=== PATIENT | female | born 1990 | race Caucasian/White ===

== ENCOUNTER 2021-11-24 16:19 | Emergency (ER) | payer OTHER ==
[2021-11-24] MEDS ORDERED: Ondansetron 4 MG/2 ML SDV IVPUSH ONE (16:58)
--- NOTE | 2021-11-24 16:59 | EDM.PDOC ---
<Aiden Branch - Last Filed: 11/25/21 06:30> ED HPI GENERAL MEDICAL PROBLEM - General Chief Complaint: General Stated Complaint: MEDICAL [facility]IA [facility] Time Seen by Provider: 11/24/21 16:54 - Related Data Allergies Allergy/AdvReac Type Severity Reaction Status Date / Time No Known Allergies Allergy Verified 11/24/21 17:16 Home Meds: Home Meds NK [No Known Home Meds] 11/24/21 [History] ED GENERAL MEDICAL PROCEDURES - Endotracheal Intubation Time of Intubation: 04:55 ET Intubation Indication: Respiratory Failure, Airway Protection, Cardiac Arrest Preparation: Suction, Balloon Tested, BVM Set Up, Difficult Airway Equip Pre-Oxygenation: Assisted with BVM, 100% FiO2 Placement: Orotracheal Cords Visualized: Yes ETT Size In mm: 8.0 Number of Attempts: 1 Confirmed By: CO2 Indicator, Bilateral Breath Sounds Tube Secured By: By Provider Endotracheal Intubation Comment: Tube is 24 cm at the teeth. Course - Re-Assessments/Exams Free Text/Narrative Re-Assessment/Exam: 11/25/21 01:22 the patient has had several rounds of fentanyl which does reduce her pain for a short period of time but is now becoming more agitated and having vomiting. Without question she has body aches related to the Covid, however, I am considering Haldol 5 mg IV push to treat her nausea, vomiting, agitation and body aches. She does remain tachycardic but otherwise stable. 11/25/21 02:33 the patient is becoming more tenuous with vitals despite having 1500 cc IV bolus of fluids and receiving Zofran for nausea. She was becoming more agitated, complaining of leg pain, and was vomiting so we gave her Haldol 5 mg IV push. It is becoming more difficult to assess her temperature and blood pressure. I discussed the case with Dr. Cruz, hospitalist/batch tester on- call who recommended an additional liter of IV normal saline. We will recheck her labs. We did broaden out her antibiotic coverage covering for more bacterial sources as possible cause of her sepsis with her elevated lactate. We will recheck a lactic acid at this time. If she continues to be tachycardic and hypotensive we will initiate norepinephrine IV. 11/25/21 03:02 repeat CBC shows the leukocyte count has gone from 18,000 to 27,000, her hemoglobin is gone from 20.7 to 24.6 and her platelet count has gone up to 344,000 despite receiving a bolus of IV fluids. Her urine showed a specific gravity of greater than 1.030. We will have to see what her repeat lactic acid looks like but it certainly looks like she may be third spacing her fluid and remains intravascularly depleted. 11/25/21 03:40 5 the Covid labs, D-dimer is markedly elevated at 1444, LDH is 781, C-reactive protein is gone from 1.10 to 1.36, pro calcitonin was 0.06 earlier and has not been read resulted yet aAnd lactic acid is gone from 4.2 to7.8 now despite being started on broad-spectrum antibiotics. The elevation of the lactic acid is worrisome especially in the presence of a markedly elevated D-dimer and worsening leg pain. We will do a CT of the chest abdomen and pelvis without contrast because her kidney function has significantly declined with creatinine going from 1.1 to 1.7 and her GFR dropping from 58 to 35. In addition we'll do bilateral lower extremity ultrasounds to rule out deep venous thrombosis as a possible cause for the elevation of her D-dimer and lactic acid. It still unclear where her source of sepsis is and I'm hoping the imaging will help identify a source. Does not appear to be the urine. 11/25/21 04:25 I reviewed the images of the CT of the chest, abdomen, and pelvis without contrast. The CT shows groundglass opacities in the lung at the mid field bilaterally. The patient has some motion artifact and was not holding her breath for the scan so there is hyper attenuation of the diaphragm from movement. The contents of the abdomen appear unremarkable. There is a markedly distended stomach with fluid but no evidence of obstruction. The majority of the small and large bowel appear to be decompressed raising the question of perhaps in a paralytic ileus. There does not appear to be any free fluid throughout the abdomen and the bladder appears to be decompressed. We will await for the final reading from [facility]. We are also awaiting the performance of the bilateral lower extremity venous duplex ultrasound. The patient is not following commands at this point so we will do an ABG to assess her oxygen exchange. She has breathing at around 50 times a minute at this point which is felt to be more likely due to anxiety, however, she also may be hypermetabolic. 11/25/21 04:45 I was called to the patient's room as a CODE BLUE was activated. The patient had fixed and dilated pupils and was unresponsive with mottling of her skin. She had no palpable pulse so CPR was initiated. She was apneic but had electrical activity on the monitor at a heart rate of 113 bpm. The patient was moved from room 6 to the stabilization room 10. She was prepped for intubation and a 8.0 endotracheal tube was placed using the glide scope across the vocal cords and secured in the airway. This was verified both by colorimetric and by auscultation. The tube was secured with a tube tamer and th e patient was placed on a Octavio device for continuous CPR. IV access was questionable so we did an intraosseous in the left tibia. This proved to be extremely difficult to flush so a IV was placed in the right forearm at the antecubital space. The patient received repeated rounds of epinephrine 1 mg aliquots, calcium carbonate 1 g IV, magnesium sulfate 1 g IV, lidocaine 100 mg IV x2 and bicarbonate 1 amp IV. Spontaneous electrical activity was noted to return to the patient, however, there was still no pulse and the Octavio device was continued. After discussion the thought was that this could be a large saddle pulmonary embolism and we elected to proceed with tissue plasma antigen. Octavio device was continued for the next 2 hours to circulate the tPA. For timing and details of administration of medications please looked at the scanned in code sheet. Dr. Cruz was consulted as well in the management of the patient and is currently in agreement with the plan. 2 hours of critical care time excluding procedures for review of the records, management of the patient and discussion with family. 11/25/21 06:50 I reviewed the latest ABG showing a pH of 6.5, PCO2 of 11.8, PO2 of 184, bicarbonate of 0.9 with a venous lactate of 21 and a creatinine of 1.83.. Her acid-base status is -32 mmol/L. Approximately 60% of the TPA had been infused at this time but the patient was not showing any sign of improvement. Given the extreme pH was felt that she was not recoverable at this time and all efforts were ceased. Patient was pronounced at 0650. I discussed the measures of care given towards the patient and had family come back to be with her. Departure - Departure Time of Disposition: 06:50 Disposition: 20 Clinical Impression: COVID-19, Tachypnea, Tachycardia, DIC (disseminated intravascular coagulation) Sepsis Qualifiers: Sepsis type: sepsis due to unspecified organism Sepsis acute organ dysfunction status: with acute organ dysfunction Severe sepsis acute organ dysfunction type: disseminated intravascular coagulopathy Severe sepsis shock status: with septic shock Qualified Code(s): A41.9 - Sepsis, unspecified organism - Discharge Information Referrals: PCP,None [Primary Care Provider] - Forms: ED Department Discharge Critical Care Note - Critical Care Note Total Time (mins): 120 (Critical care time of 120 minutes excluding procedures for evaluation of patient, management of medical condition and discussion with family.) - Problem List & Annotations (1) COVID-19 SNOMED Code(s): 322536447 Code(s): U07.1 - COVID-19 Status: Acute Priority: High Current Visit: Yes (2) Sepsis SNOMED Code(s): 93439899 Code(s): A41.9 - SEPSIS, UNSPECIFIED ORGANISM Status: Acute Priority: High Current Visit: Yes Qualifiers: Sepsis type: sepsis due to unspecified organism Sepsis acute organ dysfunction status: with acute organ dysfunction Severe sepsis acute organ dysfunction type: disseminated intravascular coagulopathy Severe sepsis shock status: with septic shock Qualified Code(s): A41.9 - Sepsis, unspecified organism; R65.21 - Severe sepsis with septic shock; D65 - Disseminated intravascular coagulation [defibrination syndrome] (3) Tachycardia SNOMED Code(s): 7181411 Code(s): R00.0 - TACHYCARDIA, UNSPECIFIED Status: Acute Priority: High Current Visit: Yes (4) Tachypnea SNOMED Code(s): 146603866 Code(s): R06.82 - TACHYPNEA, NOT ELSEWHERE CLASSIFIED Status: Acute Priority: High Current Visit: Yes (5) DIC (disseminated intravascular coagulation) SNOMED Code(s): 38888827 Code(s): D65 - DISSEMINATED INTRAVASCULAR COAGULATION Status: Acute Priority: High Current Visit: Yes - Problem List Review Problem List Initiated/Reviewed/Updated: Yes <KimberlirLew - Last Filed: 11/25/21 07:39> ED HPI GENERAL MEDICAL PROBLEM - General Source of Information: Reports: Patient, RN Notes Reviewed History Limitations: Reports: No Limitations - History of Present Illness INITIAL COMMENTS - FREE TEXT/NARRATIVE: 31-year-old female presents emergency department today complaint of body aches fatigue sore throat she is concerned about COVID-like symptoms, when she was walking to the clinic today where she was initially evaluated got very dizzy had to sit down had a near syncopal episode Bilateral Leg Pain Score (Numeric/FACES): 8 Past Medical History - Past Health History Medical/Surgical History: Denies Medical/Surgical History Social & Family History - Tobacco Use Tobacco Use Status *Q: Never Tobacco User ED ROS GENERAL - Review of Systems Review Of Systems: See Below Constitutional: Reports: Fever, Chills, Weakness, Fatigue HEENT: Reports: Throat Pain, Throat Swelling Respiratory: Reports: Shortness of Breath Cardiovascular: Reports: Dyspnea on Exertion, Lightheadedness GI/Abdominal: Reports: Nausea : Reports: No Symptoms Musculoskeletal: Reports: Muscle Pain, Muscle Stiffness ED EXAM, GENERAL - Physical Exam Exam: See Below Exam Limited By: No Limitations General Appearance: Alert, Mild Distress Respiratory/Chest: No Respiratory Distress, Lungs Clear, Normal Breath Sounds, No Accessory Muscle Use, Chest Non-Tender Cardiovascular: Tachycardia GI/Abdominal: Soft, Non-Tender Extremities: No Pedal Edema #1 Interpretation EKG Date: 11/24/21 Time: 17:15 Rhythm: Other (tachy at 130) [place]: Normal P-Wave: Present QRS: Normal ST-T: Normal QT: Normal Comparison: NA - No Prior EKG Course - Vital Signs Last Recorded V/S: Last Vital Signs Temp 95.8 F L 11/25/21 04:21 Pulse 126 H 11/24/21 22:06 Resp 49 H 11/25/21 04:21 BP 279/200 H 11/25/21 04:21 Pulse Ox 93 L 11/25/21 03:05 - Orders/Labs/Meds Orders: Active Orders 24 hr Category Date Time Status Positioning, Patient [RC] ASDIRECTED Care 11/24/21 17:22 Active Chest 1V Frontal [CR] Urgent Exams 11/24/21 16:46 Taken CBC WITH AUTO DIFF [HEME] AM Lab 11/25/21 05:11 Ordered COMPREHENSIVE METABOLIC PN,CMP [CHEM] AM Lab 11/25/21 05:11 Ordered CULTURE BLOOD [BC] Urgent Lab 11/24/21 17:33 Received CULTURE BLOOD [BC] Urgent Lab 11/24/21 17:50 Received PROCALCITONIN [CHEM] DAILY Lab 11/25/21 06:00 Ordered Acetaminophen [TylenoL] Med 11/24/21 17:22 Active 650 mg PO Q4H PRN Alteplase [Activase] 100 mg Med 11/25/21 05:45 Active Sodium Chloride 0.9% [Normal Saline] 100 ml IV ONETIME Enoxaparin [Lovenox] Med 11/24/21 18:45 Active 40 mg SUBCUT DAILY Ondansetron [Zofran] Med 11/24/21 21:32 Active 4 mg IVPUSH Q6H PRN Sodium Chloride 0.9% [Normal Saline] 1,000 ml Med 11/24/21 18:45 Active IV ASDIRECTED Sodium Chloride 0.9% [Normal Saline] 1,000 ml Med 11/25/21 02:45 Active IV ASDIRECTED dexAMETHasone [Decadron] Med 11/24/21 17:30 Active 6 mg IVPUSH DAILY Blood Culture x2 Reflex Set [OM.PC] Urgent Oth 11/24/21 19:16 Ordered Isolation [COMM] Stat Oth 11/24/21 16:53 Ordered Isolation [COMM] Stat Oth 11/24/21 17:24 Ordered EKG 12 Lead [EK] Stat Ther 11/24/21 16:57 Ordered Medication Orders Acetaminophen (Acetaminophen 325 Mg Tab) 650 mg PO Q4H PRN PRN Reason: Fever Greater Than 101 Dexamethasone (Dexamethasone 4 Mg/Ml Sdv) 6 mg IVPUSH DAILY [facility] Stop: 12/03/21 09:01 Last Admin: 11/24/21 17:30 Dose: 6 mg Documented by: BARBRA Enoxaparin Sodium (Enoxaparin 40 Mg/0.4 Ml Syringe) 40 mg SUBCUT DAILY [facility] Last Admin: 11/24/21 18:47 Dose: 40 mg Documented by: MICHELLEDEA Sodium Chloride (Normal Saline) 1,000 mls @ 999 mls/hr IV ASDIRECTED [facility] Last Admin: 11/24/21 18:59 Dose: 999 mls/hr Documented by: MICHELLEDEA Sodium Chloride (Normal Saline) 1,000 mls @ 999 mls/hr IV ASDIRECTED [facility] Last Admin: 11/25/21 02:38 Dose: 999 mls/hr Documented by: PRINCESS Alteplase, Recombinant 100 mg/ (Sodium Chloride) 100 mls @ 50 mls/hr IV ONETIME ONE Stop: 11/25/21 07:44 Ondansetron HCl (Ondansetron 4 Mg/2 Ml Sdv) 4 mg IVPUSH Q6H PRN PRN Reason: Nausea/Vomiting Last Admin: 11/24/21 21:56 Dose: 4 mg Documented by: CHAGO Labs: Laboratory Tests 11/24/21 11/24/21 11/24/21 Range/Units 16:34 17:52 17:52 WBC 18.6 H (3.2-11.0) K/uL RBC 6.91 H (3.77-5.24) M/uL Hgb 20.7 H* (11.2-15.5) Hct 60.6 H (34.3-46.0) % MCV 87.7 (81.4-99.0) fL MCH 30.0 L (31.6-35.5) pg MCHC 34.2 (31.6-35.5) g/dL Plt Count 305 (130-375) K/uL Immature Gran % (Auto) 2.2 H (0.0-0.7) % Neut % (Auto) 81.6 H (36-66) % Lymph % (Auto) 11.9 L (24-44) % [place] % (Auto) 3.8 (2-6) % Eos % (Auto) 0.0 L (2-4) % Baso % (Auto) 0.5 (0-1) % Neut # (Auto) 15.17 H (1.0-7.6) K/uL Lymph # (Auto) 2.22 (0.8-3.3) K/uL [place] # (Auto) 0.71 (0.20-0.90) K/uL Eos # (Auto) 0.00 (0.00-0.40) K/uL Baso # (Auto) 0.09 (0.00-0.10) K/uL Immature Gran # (Auto) 0.40 H (0.00-0.23) K/uL Add Manual Diff Neutrophils % (Manual) (36-66) % Band Neutrophils % (5-11) % Lymphocytes % (Manual) (24-44) % Monocytes % (Manual) (2-6) % D-Dimer, Quantitative (0.0-500.0) ng/mL Puncture Site ABG pH (7.350-7.450) ABG pCO2 (35.0-42.0) mmHg ABG pO2 (75.0-100.0) mmHg ABG HCO3 (22.0-26.0) mmol/L ABG Total CO2 (21.0-25.0) mmol/L ABG O2 Saturation (95.0-98.0) % ABG O2 Content (15.0-23.0) %vol ABG Base Excess mm/L ABG Hemoglobin (12.0-16.0) g/dL ABG Oxyhemoglobin % ABG Carboxyhemoglobin (0.0-1.6) % ABG Methemoglobin % O2 Delivery Device Sodium 132 L (140-148) mmol/L Potassium 4.9 (3.6-5.2) mmol/L Chloride 98 L (100-108) mmol/L Carbon Dioxide 22 (21-32) mmol/L Anion Gap 16.9 H (5.0-14.0) mmol/L BUN 20 H (7-18) mg/dL Creatinine 1.1 H (0.6-1.0) mg/dL Est Cr Clr Drug Dosing 74.07 mL/min Estimated GFR (MDRD) 58 L (>60) Glucose 222 H (74-106) mg/dL Lactic Acid (0.4-2.0) mmol/L Calcium 7.8 L (8.5-10.1) mg/dL Ferritin (8-388) ng/ml Total Bilirubin 0.3 (0.2-1.0) mg/dL AST 40 H (15-37) U/L ALT 46 (12-78) U/L Alkaline Phosphatase 53 (46-116) U/L Lactate Dehydrogenase (82-234) U/L C-Reactive Protein 1.10 H (0.0-0.3) mg/dL Total Protein 5.9 L (6.4-8.2) g/dL Albumin 2.2 L (3.4-5.0) g/dL Globulin 3.7 H (2.3-3.5) g/dL Albumin/Globulin Ratio 0.6 L (1.2-2.2) Procalcitonin ng/mL Urine Color (YELLOW) Urine Appearance (CLEAR) Urine pH (5.0-8.0) Ur Specific [place] (1.008-1.030) Urine Protein (NEGATIVE) mg/dL Urine Glucose (UA) (NEGATIVE) mg/dL Urine Ketones (NEGATIVE) mg/dL Urine Occult Blood (NEGATIVE) Urine Nitrite (NEGATIVE) Urine Bilirubin (NEGATIVE) Urine Urobilinogen (0.2-1.0) EU/dL Ur Leukocyte Esterase (NEGATIVE) Urine RBC (0-5) Urine WBC (0-5) Ur Epithelial Cells Amorphous Sediment Urine Bacteria Urine Mucus Urine HCG, Qual Influenza Type A RNA Negative (NEGATIVE) RSV RNA (INAAT) Negative (NEGATIVE) Influenza Type B RNA Negative (NEGATIVE) SARS-CoV-2 RNA (FRANK) Positive H (NEGATIVE) 11/24/21 11/24/21 11/24/21 Range/Units 17:52 17:52 23:49 WBC (3.2-11.0) K/uL RBC (3.77-5.24) M/uL Hgb (11.2-15.5) Hct (34.3-46.0) % MCV (81.4-99.0) fL MCH (31.6-35.5) pg MCHC (31.6-35.5) g/dL Plt Count (130-375) K/uL Immature Gran % (Auto) (0.0-0.7) % Neut % (Auto) (36-66) % Lymph % (Auto) (24-44) % [place] % (Auto) (2-6) % Eos % (Auto) (2-4) % Baso % (Auto) (0-1) % Neut # (Auto) (1.0-7.6) K/uL Lymph # (Auto) (0.8-3.3) K/uL [place] # (Auto) (0.20-0.90) K/uL Eos # (Auto) (0.00-0.40) K/uL Baso # (Auto) (0.00-0.10) K/uL Immature Gran # (Auto) (0.00-0.23) K/uL Add Manual Diff Neutrophils % (Manual) (36-66) % Band Neutrophils % (5-11) % Lymphocytes % (Manual) (24-44) % Monocytes % (Manual) (2-6) % D-Dimer, Quantitative (0.0-500.0) ng/mL Puncture Site ABG pH (7.350-7.450) ABG pCO2 (35.0-42.0) mmHg ABG pO2 (75.0-100.0) mmHg ABG HCO3 (22.0-26.0) mmol/L ABG Total CO2 (21.0-25.0) mmol/L ABG O2 Saturation (95.0-98.0) % ABG O2 Content (15.0-23.0) %vol ABG Base Excess mm/L ABG Hemoglobin (12.0-16.0) g/dL ABG Oxyhemoglobin % ABG Carboxyhemoglobin (0.0-1.6) % ABG Methemoglobin % O2 Delivery Device Sodium (140-148) mmol/L Potassium (3.6-5.2) mmol/L Chloride (100-108) mmol/L Carbon Dioxide (21-32) mmol/L Anion Gap (5.0-14.0) mmol/L BUN (7-18) mg/dL Creatinine (0.6-1.0) mg/dL Est Cr Clr Drug Dosing mL/min Estimated GFR (MDRD) (>60) Glucose (74-106) mg/dL Lactic Acid 4.2 H (0.4-2.0) mmol/L Calcium (8.5-10.1) mg/dL Ferritin (8-388) ng/ml Total Bilirubin (0.2-1.0) mg/dL AST (15-37) U/L ALT (12-78) U/L Alkaline Phosphatase (46-116) U/L Lactate Dehydrogenase (82-234) U/L C-Reactive Protein (0.0-0.3) mg/dL Total Protein (6.4-8.2) g/dL Albumin (3.4-5.0) g/dL Globulin (2.3-3.5) g/dL Albumin/Globulin Ratio (1.2-2.2) Procalcitonin 0.06 ng/mL Urine Color Yellow (YELLOW) Urine Appearance Cloudy A (CLEAR) Urine pH 5.5 (5.0-8.0) Ur Specific [place] >= 1.030 (1.008-1.030) Urine Protein 100 H (NEGATIVE) mg/dL Urine Glucose (UA) Negative (NEGATIVE) mg/dL Urine Ketones Negative (NEGATIVE) mg/dL Urine Occult Blood Negative (NEGATIVE) Urine Nitrite Negative (NEGATIVE) Urine Bilirubin Negative (NEGATIVE) Urine Urobilinogen 0.2 (0.2-1.0) EU/dL Ur Leukocyte Esterase Negative (NEGATIVE) Urine RBC 0-5 (0-5) Urine WBC 0-5 (0-5) Ur Epithelial Cells Few Amorphous Sediment Not seen Urine Bacteria Many Urine Mucus Not seen Urine HCG, Qual Influenza Type A RNA (NEGATIVE) RSV RNA (INAAT) (NEGATIVE) Influenza Type B RNA (NEGATIVE) SARS-CoV-2 RNA (FRANK) (NEGATIVE) 11/25/21 11/25/21 11/25/21 Range/Units 02:40 02:40 02:40 WBC 27.4 H (3.2-11.0) K/uL RBC 8.30 H (3.77-5.24) M/uL Hgb 24.6 H* D (11.2-15.5) Hct 76.5 H (34.3-46.0) % MCV 92.2 (81.4-99.0) fL MCH 29.6 L (31.6-35.5) pg MCHC 32.2 (31.6-35.5) g/dL Plt Count 344 (130-375) K/uL Immature Gran % (Auto) (0.0-0.7) % Neut % (Auto) (36-66) % Lymph % (Auto) (24-44) % [place] % (Auto) (2-6) % Eos % (Auto) (2-4) % Baso % (Auto) (0-1) % Neut # (Auto) (1.0-7.6) K/uL Lymph # (Auto) (0.8-3.3) K/uL [place] # (Auto) (0.20-0.90) K/uL Eos # (Auto) (0.00-0.40) K/uL Baso # (Auto) (0.00-0.10) K/uL Immature Gran # (Auto) (0.00-0.23) K/uL Add Manual Diff Yes Neutrophils % (Manual) 70 H (36-66) % Band Neutrophils % 11 (5-11) % Lymphocytes % (Manual) 15 L (24-44) % Monocytes % (Manual) 4 (2-6) % D-Dimer, Quantitative 1444.27 H (0.0-500.0) ng/mL Puncture Site ABG pH (7.350-7.450) ABG pCO2 (35.0-42.0) mmHg ABG pO2 (75.0-100.0) mmHg ABG HCO3 (22.0-26.0) mmol/L ABG Total CO2 (21.0-25.0) mmol/L ABG O2 Saturation (95.0-98.0) % ABG O2 Content (15.0-23.0) %vol ABG Base Excess mm/L ABG Hemoglobin (12.0-16.0) g/dL ABG Oxyhemoglobin % ABG Carboxyhemoglobin (0.0-1.6) % ABG Methemoglobin % O2 Delivery Device Sodium 134 L (140-148) mmol/L Potassium 5.4 H (3.6-5.2) mmol/L Chloride 101 (100-108) mmol/L Carbon Dioxide 18 L (21-32) mmol/L Anion Gap 20.4 H (5.0-14.0) mmol/L BUN 26 H (7-18) mg/dL Creatinine 1.7 H D (0.6-1.0) mg/dL Est Cr Clr Drug Dosing 47.92 mL/min Estimated GFR (MDRD) 35 L (>60) Glucose 272 H (74-106) mg/dL Lactic Acid (0.4-2.0) mmol/L Calcium 7.2 L (8.5-10.1) mg/dL Ferritin 368 (8-388) ng/ml Total Bilirubin 0.5 D (0.2-1.0) mg/dL AST 78 H D (15-37) U/L ALT 42 (12-78) U/L Alkaline Phosphatase 58 (46-116) U/L Lactate Dehydrogenase 781 H (82-234) U/L C-Reactive Protein 1.36 H (0.0-0.3) mg/dL Total Protein 6.0 L (6.4-8.2) g/dL Albumin 1.7 L (3.4-5.0) g/dL Globulin 4.3 H (2.3-3.5) g/dL Albumin/Globulin Ratio 0.4 L (1.2-2.2) Procalcitonin ng/mL Urine Color (YELLOW) Urine Appearance (CLEAR) Urine pH (5.0-8.0) Ur Specific [place] (1.008-1.030) Urine Protein (NEGATIVE) mg/dL Urine Glucose (UA) (NEGATIVE) mg/dL Urine Ketones (NEGATIVE) mg/dL Urine Occult Blood (NEGATIVE) Urine Nitrite (NEGATIVE) Urine Bilirubin (NEGATIVE) Urine Urobilinogen (0.2-1.0) EU/dL Ur Leukocyte Esterase (NEGATIVE) Urine RBC (0-5) Urine WBC (0-5) Ur Epithelial Cells Amorphous Sediment Urine Bacteria Urine Mucus Urine HCG, Qual Influenza Type A RNA (NEGATIVE) RSV RNA (INAAT) (NEGATIVE) Influenza Type B RNA (NEGATIVE) SARS-CoV-2 RNA (FRANK) (NEGATIVE) 11/25/21 11/25/21 11/25/21 Range/Units 02:40 03:34 06:54 WBC (3.2-11.0) K/uL RBC (3.77-5.24) M/uL Hgb (11.2-15.5) Hct (34.3-46.0) % MCV (81.4-99.0) fL MCH (31.6-35.5) pg MCHC (31.6-35.5) g/dL Plt Count (130-375) K/uL Immature Gran % (Auto) (0.0-0.7) % Neut % (Auto) (36-66) % Lymph % (Auto) (24-44) % [place] % (Auto) (2-6) % Eos % (Auto) (2-4) % Baso % (Auto) (0-1) % Neut # (Auto) (1.0-7.6) K/uL Lymph # (Auto) (0.8-3.3) K/uL [place] # (Auto) (0.20-0.90) K/uL Eos # (Auto) (0.00-0.40) K/uL Baso # (Auto) (0.00-0.10) K/uL Immature Gran # (Auto) (0.00-0.23) K/uL Add Manual Diff Neutrophils % (Manual) (36-66) % Band Neutrophils % (5-11) % Lymphocytes % (Manual) (24-44) % Monocytes % (Manual) (2-6) % D-Dimer, Quantitative (0.0-500.0) ng/mL Puncture Site R brachial ABG pH 6.516 L* (7.350-7.450) ABG pCO2 11.8 L* (35.0-42.0) mmHg ABG pO2 184.0 H (75.0-100.0) mmHg ABG HCO3 0.9 L (22.0-26.0) mmol/L ABG Total CO2 1.1 L (21.0-25.0) mmol/L ABG O2 Saturation 93.4 L (95.0-98.0) % ABG O2 Content 29.5 H (15.0-23.0) %vol ABG Base Excess -32.0 mm/L ABG Hemoglobin 22.5 H (12.0-16.0) g/dL ABG Oxyhemoglobin 92.5 % ABG Carboxyhemoglobin 0.0 (0.0-1.6) % ABG Methemoglobin 1.1 % O2 Delivery Device Resuscitation bag Sodium (140-148) mmol/L Potassium (3.6-5.2) mmol/L Chloride (100-108) mmol/L Carbon Dioxide (21-32) mmol/L Anion Gap (5.0-14.0) mmol/L BUN (7-18) mg/dL Creatinine (0.6-1.0) mg/dL Est Cr Clr Drug Dosing mL/min Estimated GFR (MDRD) (>60) Glucose (74-106) mg/dL Lactic Acid 7.8 H (0.4-2.0) mmol/L Calcium (8.5-10.1) mg/dL Ferritin (8-388) ng/ml Total Bilirubin (0.2-1.0) mg/dL AST (15-37) U/L ALT (12-78) U/L Alkaline Phosphatase (46-116) U/L Lactate Dehydrogenase (82-234) U/L C-Reactive Protein (0.0-0.3) mg/dL Total Protein (6.4-8.2) g/dL Albumin (3.4-5.0) g/dL Globulin (2.3-3.5) g/dL Albumin/Globulin Ratio (1.2-2.2) Procalcitonin ng/mL Urine Color (YELLOW) Urine Appearance (CLEAR) Urine pH (5.0-8.0) Ur Specific [place] (1.008-1.030) Urine Protein (NEGATIVE) mg/dL Urine Glucose (UA) (NEGATIVE) mg/dL Urine Ketones (NEGATIVE) mg/dL Urine Occult Blood (NEGATIVE) Urine Nitrite (NEGATIVE) Urine Bilirubin (NEGATIVE) Urine Urobilinogen (0.2-1.0) EU/dL Ur Leukocyte Esterase (NEGATIVE) Urine RBC (0-5) Urine WBC (0-5) Ur Epithelial Cells Amorphous Sediment Urine Bacteria Urine Mucus Urine HCG, Qual Negative Influenza Type A RNA (NEGATIVE) RSV RNA (INAAT) (NEGATIVE) Influenza Type B RNA (NEGATIVE) SARS-CoV-2 RNA (FRANK) (NEGATIVE) Meds: Medications Generic Name Dose Route Start Last Admin Trade Name Freq PRN Reason Stop Dose Admin Acetaminophen 650 mg 11/24/21 17:22 Acetaminophen 325 Mg Tab PO Q4H PRN Fever Greater Than 101 Dexamethasone 6 mg 11/24/21 17:30 11/24/21 17:30 Dexamethasone 4 Mg/Ml Sdv IVPUSH 12/03/21 09:01 6 mg DAILY LORI Administration Enoxaparin Sodium 40 mg 11/24/21 18:45 11/24/21 18:47 Enoxaparin 40 Mg/0.4 Ml Syringe SUBCUT 40 mg DAILY LORI Administration Sodium Chloride 1,000 mls @ 999 mls/hr 11/24/21 18:45 11/24/21 18:59 Normal Saline IV 999 mls/hr ASDIRECTED LORI Administration Sodium Chloride 1,000 mls @ 999 mls/hr 11/25/21 02:45 11/25/21 02:38 Normal Saline IV 999 mls/hr ASDIRECTED LORI Administration Alteplase, Recombinant 100 mg/ 100 mls @ 50 mls/hr 11/25/21 05:45 Sodium Chloride IV 11/25/21 07:44 ONETIME ONE Ondansetron HCl 4 mg 11/24/21 21:32 11/24/21 21:56 Ondansetron 4 Mg/2 Ml Sdv IVPUSH 4 mg Q6H PRN Administration Nausea/Vomiting Discontinued Medications Generic Name Dose Route Start Last Admin Trade Name Cb PRN Reason Stop Dose Admin Alteplase, Recombinant Confirm 11/25/21 05:37 Alteplase 100 Mg Vial Administered 11/25/21 05:38 Dose 100 mg .ROUTE .STK-MED ONE Fentanyl 50 mcg 11/24/21 18:21 11/24/21 18:34 Fentanyl 100 Mcg/2 Ml Sdv IVPUSH 11/24/21 18:22 25 mcg ONETIME ONE Administration Fentanyl 50 mcg 11/24/21 22:48 11/24/21 22:55 Fentanyl 100 Mcg/2 Ml Sdv IVPUSH 11/24/21 22:49 50 mcg ONETIME ONE Administration Haloperidol Lactate 5 mg 11/25/21 01:21 11/25/21 01:39 Haloperidol Lactate 5 Mg/Ml Sdv IVPUSH 11/25/21 01:22 5 mg ONETIME ONE Administration Remdesivir 200 mg/ Sodium 250 mls @ 250 mls/hr 11/24/21 18:00 11/24/21 17:58 Chloride IV 11/24/21 18:59 250 mls/hr ONETIME ONE Administration Doxycycline Hyclate 100 mg/ 100 mls @ 100 mls/hr 11/24/21 19:16 11/24/21 19:35 Sodium Chloride IV 11/24/21 20:15 100 mls/hr ONETIME ONE Administration Ceftriaxone Sodium 1 gm/ 50 mls @ 100 mls/hr 11/24/21 19:16 11/24/21 19:36 Sodium Chloride IV 11/24/21 19:45 100 mls/hr ONETIME ONE Administration Sodium Chloride 500 mls @ 999 mls/hr 11/25/21 00:13 11/25/21 00:17 Normal Saline IV 11/25/21 00:43 999 mls/hr .BOLUS ONE Administration Ketorolac Tromethamine 30 mg 11/24/21 17:17 11/24/21 17:26 Ketorolac 30 Mg/Ml Sdv IVPUSH 11/24/21 17:18 30 mg ONETIME ONE Administration Lorazepam 0.5 mg 11/24/21 23:47 11/25/21 00:07 Lorazepam 2 Mg/Ml Sdv IVPUSH 11/24/21 23:48 0.5 mg ONETIME ONE Administration Ondansetron HCl 4 mg 11/24/21 16:58 11/24/21 17:19 Ondansetron 4 Mg/2 Ml Sdv IVPUSH 11/24/21 16:59 4 mg ONETIME ONE Administration - Re-Assessments/Exams Free Text/Narrative Re-Assessment/Exam: 11/25/21 07:39 transfer of care to Dr. Branch at shift change 11/24/21 19:00 Sepsis Event Note (ED) - Evaluation Sepsis Screening Result: No Definite Risk - Focused Exam Vital Signs: Vital Signs Temp Pulse Resp BP Pulse Ox 11/25/21 04:21 95.8 F L 49 H 279/200 H 11/25/21 03:05 28 H 154/54 H 93 L 11/25/21 01:03 95.2 F L 24 H 114/79 95 11/25/21 00:18 96.4 F L 25 H 129/107 H 95 11/24/21 23:04 19 151/113 H 92 L 11/24/21 22:35 20 96 11/24/21 22:06 126 H 17 96/59 L 132 H 11/24/21 21:22 127 H 23 H 101/67 95 11/24/21 19:46 97.4 F 17 149/91 H 95 - My Orders Last 24 Hours: My Active Orders 11/24/21 16:46 Chest 1V Frontal [CR] Urgent 11/24/21 16:53 Isolation [COMM] Stat 11/24/21 16:57 EKG 12 Lead [EK] Stat 11/24/21 17:22 Positioning, Patient [RC] ASDIRECTED Acetaminophen [TylenoL] 650 mg PO Q4H PRN 11/24/21 17:24 Isolation [COMM] Stat 11/24/21 17:30 dexAMETHasone [Decadron] 6 mg IVPUSH DAILY 11/24/21 17:33 CULTURE BLOOD [BC] Urgent 11/24/21 17:50 CULTURE BLOOD [BC] Urgent 11/24/21 18:45 Enoxaparin [Lovenox] 40 mg SUBCUT DAILY 11/24/21 19:16 Blood Culture x2 Reflex Set [OM.PC] Urgent 11/25/21 05:11 CBC WITH AUTO DIFF [HEME] AM COMPREHENSIVE METABOLIC PN,CMP [CHEM] AM 11/25/21 06:00 PROCALCITONIN [CHEM] DAILY - Assessment/Plan Last 24 Hours: My Active Orders 11/24/21 16:46 Chest 1V Frontal [CR] Urgent 11/24/21 16:53 Isolation [COMM] Stat 11/24/21 16:57 EKG 12 Lead [EK] Stat 11/24/21 17:22 Positioning, Patient [RC] ASDIRECTED Acetaminophen [TylenoL] 650 mg PO Q4H PRN 11/24/21 17:24 Isolation [COMM] Stat 11/24/21 17:30 dexAMETHasone [Decadron] 6 mg IVPUSH DAILY 11/24/21 17:33 CULTURE BLOOD [BC] Urgent 11/24/21 17:50 CULTURE BLOOD [BC] Urgent 11/24/21 18:45 Enoxaparin [Lovenox] 40 mg SUBCUT DAILY 11/24/21 19:16 Blood Culture x2 Reflex Set [OM.PC] Urgent 11/25/21 05:11 CBC WITH AUTO DIFF [HEME] AM COMPREHENSIVE METABOLIC PN,CMP [CHEM] AM 11/25/21 06:00 PROCALCITONIN [CHEM] DAILY
[2021-11-24] MEDS ORDERED: Ketorolac 30 MG/ML SDV IVPUSH ONE (17:17)
[2021-11-24 17:21] LABS: CORONAVIRUS COVID-19 NAA POSITIVE (NEGATIVE)
[2021-11-24] MEDS ORDERED: REMDESIVIR 200 MG in Sodium Chloride 0.9% 250 ML IV ONE ×2 (17:22→18:00)
[2021-11-24] MEDS ORDERED: Acetaminophen 325 MG Tab PO PRN (17:22)
[2021-11-24] MEDS ORDERED: Dexamethasone 4 MG/ML SDV IVPUSH SCH (17:30)
[2021-11-24] MEDS ORDERED: fentaNYL 100 MCG/2 ML SDV IVPUSH ONE ×2 (18:21→22:48)
[2021-11-24] MEDS ORDERED: Enoxaparin 40 MG/0.4 ML Syringe SUBCUT SCH (18:45)
[2021-11-24] MEDS: Sodium Chloride 0.9% 1,000 ML IV SCH (18:59)
[2021-11-24] MEDS ORDERED: cefTRIAXone 1 GM in Sodium Chloride 0.9% 50 ML IV ONE (19:16)
[2021-11-24] MEDS ORDERED: Doxycycline 100 MG in Sodium Chloride 0.9% 100 ML IV ONE (19:16)
[2021-11-24] MEDS ORDERED: Ondansetron 4 MG/2 ML SDV IVPUSH PRN (21:32)
[2021-11-24] MEDS ORDERED: LORazepam 2 MG/ML SDV IVPUSH ONE (23:47)
[2021-11-25] MEDS ORDERED: Sodium Chloride 0.9% 500 ML IV ONE (00:13)
[2021-11-25] MEDS ORDERED: Haloperidol Lactate 5 MG/ML SDV IVPUSH ONE (01:21)
[2021-11-25] MEDS ORDERED: Sodium Chloride 0.9% 1,000 ML IV SCH (02:45)
--- NOTE | 2021-11-25 04:40 | CRLCT ---
For Patients: As a result of the Century Cures Act, medical imaging exams and procedure reports are released immediately into your electronic medical record. You may view this report before your referring provider. If you have questions, please contact your health care provider. INDICATION: COVID-19 positive. Sepsis. Volume contraction. COMPARISON: None available TECHNIQUE: CT examination of the chest, abdomen, and pelvis was performed without contrast enhancement using spiral technique. Two mm thick axial sections were obtained from above the apices of the lungs through the symphysis pubis. Oral contrast was not administered. Please note that all CT scans at this facility use dose modulation, iterative reconstruction, and/or weight-based dosing when appropriate to reduce radiation dose to as low as reasonably achievable. FINDINGS: : There are mild, hazy, ground-glass interstitial pulmonary infiltrates scattered throughout both lungs. There is peripheral and perihilar distribution, in the findings suggest early COVID-19 pneumonia. There is no sign of mediastinal or hilar mass or adenopathy. The heart is normal in appearance for the patient`s age. There is age appropriate appearance of the thoracic aorta and ascending great vessels. There is no sign of supraclavicular or axillary mass or adenopathy. In the abdomen, the liver, spleen, pancreas, and adrenals are normal in appearance. The kidneys are normal in appearance. Clips are seen in the gall bladder fossa from cholecystectomy. There is no sign of biliary ductal dilatation The abdominal aorta is normal in caliber with no sign of dilatation. There is no sign of retroperitoneal mass or adenopathy. The stomach, loops of small bowel, and colon in the abdomen are normal in appearance. In the pelvis, the appendix is normal in appearance with no sign of inflammatory process. The loops of small bowel and colon in the pelvis are normal in appearance. The uterus and adnexal regions are normal in appearance. There is a tiny amount of free fluid in the left pelvis, nonspecific. The urinary bladder is normal in appearance. There is no sign of pelvic or inguinal mass or adenopathy. There is no sign of free air or free fluid in the abdomen. There is no sign of free air or extraluminal air in the pelvis. The osseous structures are normal in appearance for the patient`s age. IMPRESSION: CT of the chest shows mild patchy ground-glass infiltrates with peripheral and perihilar distribution, suggestive of COVID-19. No sign of any deep-seated infection in the abdomen or pelvis to correlate with history of sepsis. CT of the abdomen shows changes of cholecystectomy with no sign of biliary ductal dilatation. CT of the pelvis shows a tiny amount of free fluid in the left pelvis, nonspecific. Please note that all CT scans at this facility use dose modulation, iterative reconstruction, and/or weight-based dosing when appropriate to reduce radiation dose to as low as reasonably achievable. Dictated by Jose Antonio aMria MD @ 11/25/2021 4:39:17 AM (Electronically Signed)
[2021-11-25] MEDS ORDERED: Sodium Bicarbonate 8.4% 50 MEQ/50 ML Syringe IVPUSH ONE (05:00)
[2021-11-25] MEDS ORDERED: Lidocaine 2% 100 MG/5 ML Syringe IVPUSH ONE ×2 (05:00→05:34)
[2021-11-25] MEDS: EPINEPHrine 1:10,000 1 MG/10 ML Syringe IV ONE (05:05)
[2021-11-25] MEDS ORDERED: EPINEPHrine 1:10,000 1 MG/10 ML Syringe IV ONE ×5 (05:11→06:29)
[2021-11-25] MEDS ORDERED: Calcium Chloride 10% 1 GM/10 ML Syringe IV ONE (05:19)
[2021-11-25] MEDS ORDERED: Magnesium Sulfate (4.06 MEQ/ML) 1 GM/2 ML SDV IV ONE (05:19)
--- NOTE | 2021-11-25 10:17 | PCM.SN.2 ---
- Free Text/Narrative Note: Ms. Melvin was a 31-year-old woman who presented to the emergency department yesterday afternoon following a near syncopal episode and COVID symptoms including body aches, weakness. She was brought in to the emergency department by ambulance, during transport was noted to have oxygen saturation of 88%. After arriving in the emergency department oxygen saturations were adequate on room air. She was evaluated and found to be COVID positive with infiltrates on chest x-ray and CT scan consistent with COVID 19 pneumonia. White blood cell count was found to be significantly elevated and it was felt that she may be developing secondary pneumonia and sepsis. Blood cultures were obtained and she was started on broad-spectrum IV antibiotic therapy. She did receive IV fluids, because of possible sepsis but fluids were limited because of her COVID status. During the process improvement specialist hours blood pressures were intermittently low or unobtainable and she did receive fluid resuscitation. She developed acute cardiac and pulmonary arrest this morning and I was called to assist in management. Initially she was pulseless with no significant heart rhythm. CPR was started and she was then intubated. Rhythm was obtained without palpable pulse or blood pressure. CPR was continued and she did receive intermittent doses of epinephrine. I arrived to assist in management at approximately 5:40 AM. At that time she was still receiving CPR and was being bagged via the endotracheal tube. There is still no palpable pulse or blood pressure associated with her sinus tachycardia. She required ongoing doses of epinephrine if she would develop progressive bradycardia without this. Differential was considered and it was felt highly likely that she may have experienced a pulmonary embolism so decision was made to proceed with tPA infusion. Did receive further fluid resuscitation. Laboratory tests were obtai duc and showed severe lactic acidosis and a marked decrease in her pH. Despite interventions these had become progressively worse and it was felt that further attempts at resuscitation would be unsuccessful. 1 hour of critical care time was spent in the emergency department assisting in the management of this patient.
--- NOTE | 2021-11-27 09:22 | CR ---
CHEST: Portable 11/24/2021 at 4:54 PM CLINICAL HISTORY:AMS COMPARISON:None FINDINGS: There are faint patchy densities in the midlung orona bilaterally. Heart size and pulmonary vascularity is normal. There are no effusions. IMPRESSION: Questionable faint patchy densities in the midlung orona. This can represent a pneumonitis
[2021-11-28] MEDS: EPINEPHrine 1:10,000 1 MG/10 ML Syringe IV ONE (08:25)
[2021-11-28] MEDS: Sodium Chloride 0.9% 1,000 ML IV SCH (08:44)
== END 2021-11-25 12:05 | disposition expired ==
LOC: JP.ED 16:19
DX: A41.9 Sepsis, unspecified organism (principal); R65.21 Severe sepsis with septic shock; U07.1 COVID-19; D65 Disseminated intravascular coagulation [defibrination syndrome]; R00.0 Tachycardia, unspecified
CPT/HCPCS: 0241U; 31500; 36415; 36600; 71045; 71250; 74176; 80053; 81001; 81025; 82728; 82803; 83605; 83615; 84145; 85025; 85379; 86140; 87040; 93005; 96365; 96367; 96368; 96375; 96376; 99285; J0171; J0696; J1100; J1630; J1650; J1885; J2060; J2405; J2997; J3010; J3475; J3490; J7030; J7040; J7050